=== PATIENT | female | born 1960 | race Caucasian/White ===

== ENCOUNTER 2021-04-18 07:35 | Emergency (ER) | payer SELFPAY ==
[~2021-04-18] VITALS: Ht 162.6 cm; Wt 84.0 kg
[2021-04-18] MEDS ORDERED: PENICILLN VK500 M1 PO (07:47)
[2021-04-18] MEDS ORDERED: LOSARTAN POTASS1 POW (08:11)
[2021-04-18] MEDS ORDERED: XANAX0.25 MG PO (08:12)
[2021-04-18] MEDS ORDERED: FLUOXETINE10 M2 PO (08:12)
[2021-04-18] MEDS ORDERED: HYDROCO/APAP1 TA9 PO (08:12)
[2021-04-18 08:14] VITALS: BP 159/98
== END 2021-04-18 08:14 | disposition home or self-care (01) | DRG 159 ==
LOC: ED 07:35
DX: K08.89 Other specified disorders of teeth and supporting structures (principal); I10 Essential (primary) hypertension; J44.9 Chronic obstructive pulmonary disease, unspecified; E66.9 Obesity, unspecified

== ENCOUNTER 2021-04-19 09:42 | Observation (INO) | payer SELFPAY ==
[~2021-04-19] VITALS: Ht 162.6 cm; Wt 102.0 kg
[~2021-04-19 09:42] MED LIST: FLUOXETINE10 M2 PO; HYDROCO/APAP1 TA9 PO; LOSARTAN POTASS1 POW; PENICILLN VK500 M1 PO; XANAX0.25 MG PO
--- NOTE | 2021-04-19 10:00 | NUR ---
PATIENT TO ROOM VIA WC BEDSIDE TRIAGE COMPLETED
[2021-04-19 10:51] LABS: GFR > 60 ML/MIN (>=60 (CALC)); GFR FOR AFR.AMER. > 60 ML/MIN (>=60 (CALC))
[2021-04-19 11:04] LABS: HEMATOCRIT 47.2 % (37.0-47.0); HEMOGLOBIN 15.5 g/dl (12.0-16.0); IMMATURE GRANULOCYTES 0.2 % (0.0-5.0); MEAN CELL VOLUME 99.6 fL CALC (80.0-100.0); MEAN CORPUSCULAR HGB 32.7 pG CALC (26.0-32.0); MEAN CORPUSCULAR HGB CONC 32.8 g/dL CAL (32.0-36.0); NEUT# 5.52 thou/uL (2.00-7.15); RED BLOOD COUNT 4.74 mill/uL (4.20-5.60); RED CELL DISTRI WIDTH 13.6 % (11.5-15.5)
[2021-04-19 11:08] LABS: ALBUMIN 4.2 g/dL (3.2-5.0); ALKALINE PHOSPHATASE 98 u/l (38-126); ANION GAP 15 (6-22 (CALC)); BILIRUBIN, TOTAL 0.8 mg/dL (0.0-1.4); BUN 13 mg/dL (8-23); BUN/CREATININE RATIO 26 (12-20 (CALC)); CARBON DIOXIDE 23 mmol/l (22-30); CHLORIDE 107 mmol/l (95-108); CREATININE 0.5 mg/dL (0.5-1.0); GFR > 60 ML/MIN (>=60 (CALC)); GFR FOR AFR.AMER. > 60 ML/MIN (>=60 (CALC)); POTASSIUM 4.2 mmol/l (3.5-5.1); SGOT/AST 79 u/l (9-36); SODIUM 141 mmol/l (137-146); TOTAL PROTEIN 8.8 g/dL (6.3-8.2)
--- NOTE | 2021-04-19 11:15 | NUR ---
IV ABT INFUSING, PT TOLERATING WELL.UPDATED ON POC
--- NOTE | 2021-04-19 12:15 | NUR ---
PT IN NO DISTRESS, IV ABT INFUSING. PAIN MEDS EFFECTIVE
--- NOTE | 2021-04-19 14:08 | NUR ---
PT UPDATED ON POC AND AGREEABLE TO ADMIT
--- NOTE | 2021-04-19 15:11 | NUR ---
UP TO BEDSIDE CHAIR FOR COMFORT.
--- NOTE | 2021-04-19 16:50 | NUR ---
MEDICATED WITH LORTAB FOR RT FACE PAIN 11/16, ICE PACK APPLIED FOR COMFORT
--- NOTE | 2021-04-19 16:56 | NUR ---
REPORT REC FROM Madeline BROWNE RN
--- NOTE | 2021-04-19 17:00 | NUR ---
REPORT CALLED TO CHRISTIANO VERA MS2
--- NOTE | 2021-04-19 17:00 | NUR ---
PT TRANSPORTED TO [place] VIA WC IN NO DISTRESS
--- NOTE | 2021-04-19 17:13 | NUR ---
PT ARRIVED VIA WC ACCOMPANIED BY Madeline BROWNE RN. A&O X3. NO DISTRESS NOTED. EDEMA NOTED TO RT SIDE OF THE FACE; PT REPORTS SYMPTOMS STARTED A FEW DAYS AGO. SLIGHT REDNESS NOTED UNDERNEATH EYE; ICE PACK IN PLACE. CLEAR BREATH SOUNDS UPON AUSCULTATION. #20G RAC HEALTHY AND PATENT. ASSESSMENT COMPLETED. DISCUSSED POC. CALL LIGHT WITHIN REACH. ORIENTED PT TO ROOM
[2021-04-19 17:20] VITALS: BP 193/72
[2021-04-19 17:30] VITALS: BP 200/97
--- NOTE | 2021-04-19 18:00 | NUR ---
DR WEBB NOTIFIED OF ELEVATED BP AND PTS REQUEST OF NICOTINE PATCH. VERBAL ORDERS OBTAINED. CALL LIGHT WITHIN REACH.
--- NOTE | 2021-04-19 18:35 | NUR ---
MEDICATED PATIENT WITH APRESOLINE FOR BP 200/79. CALL LIGHT IN REACH.
--- NOTE | 2021-04-19 20:00 | NUR ---
PATIENT SITTING UP IN HER BED AT THIS TIME. RIGHT SIDE OF PATIENT FACE AND CHEEK ARE RED AND SWOLLEN. AREA IS VERY PAINFUL-TOO EARLY FOR PAIN MEDS AT THIS TIME-WILL F/UP WITH MD FOR FURTHER ORDERS. IVF NS PATENT AND INFUSING VIA RAC SITE AT 75CC/HR. BP REMAINS ELEVATED AT THIS TIME. CALL LIGHT IN REACH. WILL CONT TO MONITOR.
[2021-04-19 20:50] VITALS: BP 181/95
--- NOTE | 2021-04-19 21:45 | NUR ---
NEW ORDERES OBTAINED. PATIENT MEDICATED WITH MORPHINE 2MG IVP FOR SEVERE PAIN TO RIGHT FACE AND MOUTH. IVF REMAIN PATENT AND INFUSING VIA RAC SITE AT 75CC/HR. CALL LIGHT IN REACH. WILL CONT TO MONITOR.
--- NOTE | 2021-04-20 | NUR ---
PATIENT RESTING IN BED-ZOSYN HUNG ORDERED VIA [facility] SITE. SITE REMAINS HEALTHY AT THIS TIME. MEDICATED WITH LORTAB 5/325MG PO FOR RIGHT MOUTH AND CHEEK PAIN. CALL LIGHT IN REACH. WILL CONT TO MONITOR.
--- NOTE | 2021-04-20 02:25 | NUR ---
PATIENT SITTING UP IN BED AT THIS TIME-C/O SEVERE MOUTH RIGHT CHEEK AND BACK PAIN-7/10 ON PAIN SCALE. PATIENT WITH IVF NS PATENT AND INFUSING VIA RAC SITE AT 75CC/HR. SITE IS HEALTHY WITH GOOD BLOOD RETURN. MEDICATED FOR PAIN WITH MORPHINE 2MG IVP ORDERED. SAFETY PRECAUTIONS REINFORCED. CALL LIGHT IN REACH. WILL CONT TO MONITOR.
[2021-04-20 02:39] VITALS: BP 167/100
--- NOTE | 2021-04-20 02:40 | NUR ---
PATIENT SITTING UP IN BED AT THIS TIME.RIGHT SIDE OF HER FACE AND CHEET ARE RED AND SWOLLEN. AREA IS ALSO VERY PAINFUL-TOOEARLY FOR PAIN MEDS AT THIS TIME. WILL F/UP WITH MD FOR FURTHER ORDERS. IVF NS PATENT AND INFUSING VIA VIA RAC SITE AT 75CC/HR. BP REMAINS ELEVATED AT THIS TIME. CALL LIGHT IN REACH. WILL CONT TO MONITOR.
--- NOTE | 2021-04-20 03:03 | NUR ---
PATIENT RESTING IN BED AT THIS TIME-MEDICATED FOR HTN WITH APRESOLINE 10MG IVP. PAIN IS IMPROVED SINCE BEING MEDICATED. CALL LIGHT IN REACH. WILL CONT TO MONITOR.
[2021-04-20 03:53] VITALS: BP 160/92
--- NOTE | 2021-04-20 06:43 | NUR ---
PATIENT RESTING IN BED-MEDICATED FOR PAIN WITH MORPHINE 2MG IVP FOR 7/10 ON PAIN SCALE. IVF NS PATENT AND INFUSING VIA RAC SITE AT 75CC/HR. SITE REMAINS HEALTHY. CALL LIGHT IN REACH. WILL CONT TO MONITOR.
[2021-04-20 06:54] LABS: HEMATOCRIT 43.2 % (37.0-47.0); HEMOGLOBIN 14.4 g/dl (12.0-16.0); MEAN CELL VOLUME 101.2 fL CALC (80.0-100.0); MEAN CORPUSCULAR HGB 33.7 pG CALC (26.0-32.0); MEAN CORPUSCULAR HGB CONC 33.3 g/dL CAL (32.0-36.0); RED BLOOD COUNT 4.27 mill/uL (4.20-5.60); RED CELL DISTRI WIDTH 13.9 % (11.5-15.5)
[2021-04-20 07:00] LABS: ANION GAP 13 (6-22 (CALC)); BUN 10 mg/dL (8-23); BUN/CREATININE RATIO 22 (12-20 (CALC)); CARBON DIOXIDE 22 mmol/l (22-30); CHLORIDE 109 mmol/l (95-108); CREATININE 0.5 mg/dL (0.5-1.0); GFR > 60 ML/MIN (>=60 (CALC)); GFR FOR AFR.AMER. > 60 ML/MIN (>=60 (CALC)); MAGNESIUM 1.8 mg/dL (1.6-2.3); SODIUM 140 mmol/l (137-146)
[2021-04-20 07:45] VITALS: BP 155/84
--- NOTE | 2021-04-20 07:45 | NUR ---
PT SITTING ON THE SIDE OF THE BED. A&O X3. NO DISTRESS NOTED. CLEAR BREATH SOUNDS WITH WHEEZING IN BILAT LOWER LOBES HEARD UPON AUSCULTATION. ACTIVE BOWEL SOUNDS X4 QUADRANTS. IV HEALTHY AND PATENT. EDEMA BETTER COMPARED TO YESTERDAY; PT C/O ABOUT "BLEEDING FROM MOUTH"; THIS ACCOUNT AUDITOR INSPECTING MOUTH, UPON INSPECTION PT STATING "UGHH PERFUME" FOLLOWED BY COUGHING WHILE LOOKING AT THIS ACCOUNT AUDITOR. THIS ACCOUNT AUDITOR TO STEP OUT OF ROOM AT THIS TIME. ASSESSMENT COMPLETED. DISCUSSED POC. CALL LIGHT WITHIN REACH.
[2021-04-20] MEDS ORDERED: LOSARTAN POTASS50 MG PO (09:21)
[2021-04-20] MEDS ORDERED: MULTI VIT PO (09:33)
[2021-04-20] MEDS ORDERED: K-TAB20 MEQ (09:35)
--- NOTE | 2021-04-20 09:40 | NUR ---
DR MENJIVAR AND Viet STEVEN APRN AT BEDSIDE DISCUSSING POC
[2021-04-20] MEDS ORDERED: BENADRY1 PO (09:42)
--- NOTE | 2021-04-20 09:45 | NUR ---
DR MENJIVAR AND Viet STEVEN APRN AT BEDSIDE DISCUSSING POC
--- NOTE | 2021-04-20 10:55 | NUR ---
S: EWA ROQUE is a 61 F who presents with cellulitis of the face. She has a history of hypertension, obesity, Chronic pain syndrome, and anxiety/depression. All medications in patient's chart were reviewed. O: VS: BP 155/84 MMHG, P 93 BPM, RR 18 BREATHS/MIN, T 97.8 F W 102 kg, HT 162.56 CM, Scr= 0.5 MG/DL, CrCl= 118 ml/min A: Blood culture show no growth after 24 hours P:Patient is on Zosyn 3.375 gram Q6H IV. Vancomycin ordered for pharmacy to dose. Start Vancomycin 1 gram IV Q8H. Vancomycin trough is drawn before the 4th dose on 04/20 at 1200. Vancomycin goal trough is between 10-15 mg/ml. Pharmacy will follow and or advise on antibiotics use as needed.
[2021-04-20] MEDS ORDERED: MOTRIN800 MG PO (12:28)
--- NOTE | 2021-04-20 12:32 | NUR ---
PT REFUSING RUMA ORANTES TO BE DRAWN; RUMA FRAIRE
--- NOTE | 2021-04-20 13:40 | NUR ---
Discharge instructions given. Patient verbalizes understanding of same. Discharged in stable condition via Wheelchair to home accompanied by staff. All belongings sent with pt.
== END 2021-04-20 13:39 | disposition home or self-care (01) | DRG 122 ==
LOC: ED 09:42 → ED-I 11:48 → ED 13:57 → MS2 13:58
PROVIDERS: Family Medicine; Nurse Practitioner; ADMIT Internal Medicine; ATTEND Internal Medicine
PROC: 3E02340 Introduction of Influenza Vaccine into Muscle, Percutaneous Approach (ICD-10-PCS; principal; 2021-04-20)
PROC: 3E0234Z Introduction of Serum, Toxoid and Vaccine into Muscle, Percutaneous Approach (ICD-10-PCS; 2021-04-20)
DX: H05.011 Cellulitis of right orbit (principal); I10 Essential (primary) hypertension; K08.89 Other specified disorders of teeth and supporting structures; E66.3 Overweight; F41.9 Anxiety disorder, unspecified; F32.A Depression, unspecified; G89.4 Chronic pain syndrome; F17.200 Nicotine dependence, unspecified, uncomplicated; Z23 Encounter for immunization; Z68.38 Body mass index [BMI] 38.0-38.9, adult; Z20.822 Contact with and (suspected) exposure to COVID-19
CPT/HCPCS: G0378; J1650; Q9967

== ENCOUNTER 2021-05-09 11:02 | Emergency (ER) | payer SELFPAY ==
[~2021-05-09] VITALS: Ht 162.6 cm; Wt 105.0 kg
[~2021-05-09 11:02] MED LIST changes: +BENADRY1 PO; +K-TAB20 MEQ; +LOSARTAN POTASS50 MG PO; +MOTRIN800 MG PO; +MULTI VIT PO
[2021-05-09] MEDS ORDERED: OXYCOD-APAP1 TA1 PO (11:33)
[2021-05-09 12:47] LABS: ALBUMIN 4.2 g/dL (3.2-5.0); ALKALINE PHOSPHATASE 68 u/l (38-126); ANION GAP 8 (6-22 (CALC)); BILIRUBIN, TOTAL 0.5 mg/dL (0.0-1.4); BUN 13 mg/dL (8-23); BUN/CREATININE RATIO 23 (12-20 (CALC)); CHLORIDE 104 mmol/l (95-108); CREATININE 0.5 mg/dL (0.5-1.0); GFR > 60 ML/MIN (>=60 (CALC)); GFR FOR AFR.AMER. > 60 ML/MIN (>=60 (CALC)); LIPASE 78 u/l (23-300); POTASSIUM 4.1 mmol/l (3.5-5.1); SGOT/AST 58 u/l (9-36); SODIUM 139 mmol/l (137-146); TOTAL PROTEIN 8.6 g/dL (6.3-8.2)
[2021-05-09 12:48] LABS: CARBON DIOXIDE 31 mmol/l (22-30)
[2021-05-09 13:08] LABS: HEMATOCRIT 45.3 % (37.0-47.0); HEMOGLOBIN 14.4 g/dl (12.0-16.0); IMMATURE GRANULOCYTES 0.2 % (0.0-5.0); MEAN CELL VOLUME 102.7 fL CALC (80.0-100.0); MEAN CORPUSCULAR HGB 32.7 pG CALC (26.0-32.0); MEAN CORPUSCULAR HGB CONC 31.8 g/dL CAL (32.0-36.0); NEUT# 4.45 thou/uL (2.00-7.15); RED BLOOD COUNT 4.41 mill/uL (4.20-5.60); RED CELL DISTRI WIDTH 12.6 % (11.5-15.5)
[2021-05-09 14:34] VITALS: BP 182/88
== END 2021-05-09 15:35 | disposition home or self-care (01) | DRG 313 ==
LOC: ED 11:02
PROVIDERS: Family Medicine
DX: R07.89 Other chest pain (principal); R10.13 Epigastric pain; I10 Essential (primary) hypertension; E66.9 Obesity, unspecified; F17.200 Nicotine dependence, unspecified, uncomplicated; Z68.39 Body mass index [BMI] 39.0-39.9, adult; W01.198A Fall on same level from slipping, tripping and stumbling with subsequent striking against other object, initial encounter
CPT/HCPCS: Q9967

== ENCOUNTER 2022-02-01 23:34 | Observation (INO) | payer OTHER ==
[~2022-02-01] VITALS: Ht 162.6 cm; Wt 87.0 kg
[~2022-02-01 23:34] MED LIST changes: +OXYCOD-APAP1 TA1 PO
[2022-02-01 23:49] VITALS: BP 119/78
[2022-02-02] VITALS (20 sets, daily range): BP systolic 94–157; BP diastolic 56–91
[2022-02-02] MEDS ORDERED: PROAIR HFA IN (00:15)
[2022-02-02] MEDS ORDERED: METOPROL TAR25 MG PO (00:15)
[2022-02-02 00:23] LABS: HEMATOCRIT 41.8 % (37.0-47.0); HEMOGLOBIN 13.7 g/dl (12.0-16.0); IMMATURE GRANULOCYTES 0.6 % (0.0-5.0); MEAN CORPUSCULAR HGB 33.7 pG CALC (26.0-32.0); MEAN CORPUSCULAR HGB CONC 32.8 g/dL CAL (32.0-36.0); NEUT# 6.58 thou/uL (2.00-7.15); RED BLOOD COUNT 4.06 mill/uL (4.20-5.60); RED CELL DISTRI WIDTH 13.5 % (11.5-15.5)
[2022-02-02 00:42] LABS: ALBUMIN 4.6 g/dL (3.2-5.0); ALKALINE PHOSPHATASE 67 u/l (38-126); AMYLASE 94 u/l (30-110); BILIRUBIN, TOTAL 0.7 mg/dL (0.0-1.4); CARBON DIOXIDE 26 mmol/l (22-30); CHLORIDE 95 mmol/l (95-108); ETHYL ALCOHOL 0 mg/dl (0-30); LIPASE 99 u/l (23-300); POTASSIUM 4.1 mmol/l (3.5-5.1); TOTAL PROTEIN 8.5 g/dL (6.3-8.2)
[2022-02-02 00:47] LABS: ANION GAP 14 (6-22 (CALC)); BUN 41 mg/dL (8-23); BUN/CREATININE RATIO 12 (12-20 (CALC)); CREATININE 3.3 mg/dL (0.5-1.0); GFR FOR AFR.AMER. 17 ML/MIN (>=60 (CALC)); GFR OTHER RACES 14 ML/MIN (>=60 (CALC)); SGOT/AST 230 u/l (9-36); SODIUM 131 mmol/l (137-146)
[2022-02-02 00:54] LABS: MYOGLOBIN 238 ng/mL (0 - 62)
[2022-02-02 03:21] LABS: URINE BILIRUBIN - DIPSTICK NEGATIVE (NEGATIVE); URINE BLOOD DIPSTICK TRACE-INTACT (NEGATIVE); URINE COLOR YELLOW; URINE GLUCOSE - DIPSTICK NEGATIVE (NEGATIVE); URINE KETONE NEGATIVE (NEGATIVE); URINE LEUK ESTERASE NEGATIVE (NEGATIVE); URINE NITRITE - DIPSTICK NEGATIVE (Negative); URINE PROTEIN - DIPSTICK TRACE mg/dL (NEG-TRACE); URINE SPECIFIC GRAVITY 1.015; URINE UROBILINOGEN - DIPSTICK 0.2 E.U./dL (0.2)
[2022-02-02] MEDS ORDERED: LOSARTAN POTASS50 MG PO (10:09)
[2022-02-02 11:39] LABS: ALBUMIN 4.7 g/dL (3.2-5.0); BILIRUBIN, TOTAL 0.5 mg/dL (0.0-1.4); POTASSIUM 4.7 mmol/l (3.5-5.1); TOTAL PROTEIN 8.3 g/dL (6.3-8.2)
[2022-02-02 11:48] LABS: CREATININE 1.2 mg/dL (0.5-1.0)
[2022-02-02] MEDS ORDERED: PERCOCET 5/321 COMBO PO (13:20)
[2022-02-03 04:09] VITALS: BP 147/87
[2022-02-03 05:40] LABS: IMMATURE GRANULOCYTES 0.9 % (0.0-5.0); MEAN CELL VOLUME 105.9 fL CALC (80.0-100.0); MEAN CORPUSCULAR HGB 34.1 pG CALC (26.0-32.0); MEAN CORPUSCULAR HGB CONC 32.2 g/dL CAL (32.0-36.0); NEUT# 5.68 thou/uL (2.00-7.15); RED BLOOD COUNT 3.4 mill/uL (4.20-5.60); RED CELL DISTRI WIDTH 13.5 % (11.5-15.5)
[2022-02-03 05:55] LABS: HEMOGLOBIN 11.6 g/dl (12.0-16.0)
[2022-02-03 06:15] LABS: ALBUMIN 3.9 g/dL (3.2-5.0); ALKALINE PHOSPHATASE 55 u/l (38-126); ANION GAP 9 (6-22 (CALC)); BILIRUBIN, TOTAL 0.4 mg/dL (0.0-1.4); BUN 28 mg/dL (8-23); BUN/CREATININE RATIO 41 (12-20 (CALC)); CARBON DIOXIDE 24 mmol/l (22-30); CHLORIDE 111 mmol/l (95-108); CREATININE 0.7 mg/dL (0.5-1.0); GFR FOR AFR.AMER. > 60 ML/MIN (>=60 (CALC)); GFR OTHER RACES > 60 ML/MIN (>=60 (CALC)); POTASSIUM 4.1 mmol/l (3.5-5.1); SGOT/AST 108 u/l (9-36); SODIUM 139 mmol/l (137-146); TOTAL PROTEIN 6.9 g/dL (6.3-8.2)
[2022-02-03 07:00] VITALS: BP 171/88
[2022-02-03 07:23] VITALS: BP 171/88
[2022-02-03 10:06] VITALS: BP 138/79
[2022-02-03 10:21] VITALS: BP 138/79
== END 2022-02-03 15:20 | disposition home or self-care (01) | DRG 313 ==
LOC: ED 23:34 → ED-I 02-02 02:30 → ED 02-02 03:24 → MS2 02-02 03:25
PROVIDERS: Emergency Medicine; Internal Medicine; Nurse Practitioner Family; ADMIT Internal Medicine; ATTEND Internal Medicine
DX: R07.9 Chest pain, unspecified (principal); N17.9 Acute kidney failure, unspecified; E87.1 Hypo-osmolality and hyponatremia; R10.13 Epigastric pain; R19.01 Right upper quadrant abdominal swelling, mass and lump; E86.0 Dehydration; E86.9 Volume depletion, unspecified; I10 Essential (primary) hypertension; J44.9 Chronic obstructive pulmonary disease, unspecified; E66.9 Obesity, unspecified; G89.4 Chronic pain syndrome; F41.9 Anxiety disorder, unspecified; F32.A Depression, unspecified; M19.90 Unspecified osteoarthritis, unspecified site; F17.200 Nicotine dependence, unspecified, uncomplicated
CPT/HCPCS: G0378; S0164

== ENCOUNTER 2023-09-27 00:15 | Emergency (ER) | payer OTHER ==
[~2023-09-27] VITALS: Ht 162.6 cm; Wt 86.0 kg
[~2023-09-27 00:15] MED LIST changes: +METOPROL TAR25 MG PO; +PERCOCET 5/321 COMBO PO; +PROAIR HFA IN
[2023-09-27] MEDS ORDERED: SODIUM CHLORIDE 0.9% 1,000 ML IV ONE (00:20)
[2023-09-27] MEDS ORDERED: ONDANSETRON HCl 4 MG/2 ML SDV IV ONE (00:20)
[2023-09-27] MEDS ORDERED: DIPHENOXYLATE W/ ATROPINE 2.5 MG TAB PO ONE (00:20)
[2023-09-27 00:28] VITALS: BP 154/80
[2023-09-27 00:31] VITALS: BP 160/76
[2023-09-27] MEDS ORDERED: HYDROCHLOROT25 MG PO (00:42)
[2023-09-27 00:43] LABS: HEMOGLOBIN 13.3 g/dl (12.0-16.0); IMMATURE GRANULOCYTES 1.5 % (0.0-5.0); LYMPH% 4.3 % (15-41); MEAN CELL VOLUME 103.8 fL CALC (80.0-100.0); MEAN CORPUSCULAR HGB 33.7 pG CALC (26.0-32.0); MEAN CORPUSCULAR HGB CONC 32.4 g/dL CAL (32.0-36.0); MONO% 4.3 % (2-13); NEUT# 22.23 thou/uL (2.00-7.15); NEUT% 89.9 % (42-76); RED BLOOD COUNT 3.95 mill/uL (4.20-5.60); RED CELL DISTRI WIDTH 13.4 % (11.5-15.5)
[2023-09-27] MEDS ORDERED: ALBUTEROL SULFATE 2.5 MG VIAL IN ONE (00:45)
[2023-09-27 00:55] LABS: ALBUMIN 4.1 g/dL (3.2-5.0); CREATININE 0.6 mg/dL (0.5-1.0); TOTAL PROTEIN 8.1 g/dL (6.3-8.2)
[2023-09-27 01:05] LABS: INTERNATIONAL NORMALIZED RATIO 1.4 RATIO (0.7-1.3)
[2023-09-27 01:24] LABS: BILIRUBIN, TOTAL 0.9 mg/dL (0.02-1.3); POTASSIUM 3.2 mmol/l (3.5-5.1)
[2023-09-27 01:27] LABS: PROTHROMBIN TIME 13.1 SECONDS (9.0-12.5)
[2023-09-27 01:31] VITALS: BP 161/92
[2023-09-27] MEDS ORDERED: LOMOTIL2.5 MG PO (02:44)
[2023-09-27] MEDS ORDERED: ONDANSETRON4 MG PO (02:44)
[2023-09-27 02:56] VITALS: BP 161/92
== END 2023-09-27 05:00 | disposition home or self-care (01) | DRG 392 ==
LOC: ED 00:15
PROVIDERS: Family Medicine
DX: K52.9 Noninfective gastroenteritis and colitis, unspecified (principal); D72.828 Other elevated white blood cell count; I10 Essential (primary) hypertension; E66.9 Obesity, unspecified; F17.200 Nicotine dependence, unspecified, uncomplicated